=== PATIENT | female | born 2005 | race Caucasian/White ===

== ENCOUNTER 2024-05-31 12:05 | Day surgery (SDC) | payer OTHER, SELFPAY ==
[2024-05-31] VITALS (10 sets, daily range): BP systolic 100–143; BP diastolic 66–84; PULSE 72–131; RESP 14–20; TEMP 36.1–36.9; O2SAT 96–100; BMI 24.3
[2024-05-31 12:33] LABS: Mucous, Urine 0 SEEN /hpf (<or=2+); Red Blood Cells-Urine 0 SEEN /hpf (0-5)
[2024-05-31 12:34] LABS: Absolute Lymphocyte Count 2.23 X10^3/uL (0.83-4.51); Absolute Neutrophil Count 7.1 X10^3/uL (2.0-7.7); Basophil# 0.04 X10^3/uL; Basophil% 0.4 % (0-1); Eosinophil# 0.06 X10^3/uL; Eosinophils% 0.6 % (0-5); Hematocrit 36.7 % (37-47); Hemoglobin 11.5 g/dL (12.0-15.0); Lymphocyte # 2.23 X10^3/ul (0.83-4.51); Lymphocyte % 22.3 % (19-41); Mean Corp Hgb Conc 31.3 g/dL (32-36); Mean Corpuscular Hgb 28.3 pg (27.0-32.0); Mean Corpuscular Volume 90.2 fL (81-99); Monocyte# 0.54 X10^3/uL; Monocyte% 5.4 % (0-10); NRBC Flagged by Analyzer 0 % (0-5); Neutrophil # 7.08 X10^3/uL (2.7-7.7); Platelet Count 376 K/mm3 (150-450); RBC Distribution Width SD 42.8 fl (35.1-43.9); Red Blood Count 4.07 M/mm3 (4.2-5.4)
--- NOTE | 2024-05-31 12:35 | CT_ITS ---
STUDY: CT ABDOMEN AND PELVIS WITH CONTRAST REASON FOR EXAM: Female, 18 years old. Right lower quadrant pain proximity of McBurney''s, -- Decreased appetite RADIATION DOSAGE (If Supplied By Facility): CTDIvol = ( 10.15 ) mGy, DLP = ( 522.53 ) mGycm TECHNIQUE: Transaxial images were obtained from the dome of the diaphragm to the symphysis pubis without oral contrast. IV 100mL Isovue-370 was administered. Sagittal and coronal images were reconstructed. Individualized dose optimization techniques were used for this CT. COMPARISON: None. FINDINGS: Minimal increased linear markings at the left lung base suggestive of linear atelectasis. The visualized portions of the heart are within normal limits. Normal liver. Normal gallbladder and extrahepatic biliary system. Normal spleen. Normal pancreas. Normal bilateral adrenal glands. Normal right kidney. Normal left kidney. Normal visualized stomach. Normal small intestine. Normal colon. There is a tubular, thick-walled appendix (>7mm), consistent with acute appendicitis. Small lymph nodes are seen in the mesenteric fat in the right lower quadrant is suggestive of a mesenteric adenitis. Normal abdominal aorta. Normal inferior vena cava. Normal retroperitoneum. Normal urinary bladder. Small amount of free fluid is seen in the cul-de-sac. Worse on the right side. Follicles are seen in both ovaries. Normal abdominal wall. Normal osseous structures. CT/Abdomen/Pelvis W IV Cont ONLY IMPRESSION: Findings suggestive of appendicitis with fluid in the pelvis more prominent on the right side. Mesenteric adenitis. Follicles in both ovaries. Electronically Signed: Obnina Madsen MD at 13:07 EST ,
[2024-05-31 12:36] LABS: Color, Urine Yellow (Yellow); Glucose, Dipstick Normal (Normal); Ketone-Dipstick Negative (Negative); Leukocyte Esterase-Dipstick 100 /ul (Negative); Nitrite-Dipstick Negative (Negative); Occult Blood-Urine Negative /ul (Negative); Protein-Dipstick Negative (Negative); Specific Gravity, Urine 1.025 (1.002-1.030); Urine Bilirubin Dipstick Negative (Negative); Urine Clarity Sl. Cloudy (Clear); Urine Urobilinogen Normal (Normal)
--- NOTE | 2024-05-31 12:38 | EDS_ITS ---
HPI <CARMINE Clark - Last Filed: 05/31/24 13:37> History of Present Illness Chief Complaint: Abd Pain Narrative Narrative: Patient is a 18-year-old female with no significant medical history presents to the emergency department with 2 days of right lower quadrant abdominal pain. Patient states that started gradually. Patient states it is now more of a discomfort, she feels like there is a need to go to the bathroom. She denies any difficulty urinating, denies any blood in her stool. Patient dates she did have 2 episodes of diarrhea today which is not like her. She did go to the urgent care however was referred here secondary to pain of the right lower quadrant. Patient's menstrual cycle is usually towards the end of the month beginning of next month. PFSH <CARMINE Clark - Last Filed: 05/31/24 13:37> PFSH Medical History no medical history Home Medications ?Medication ?Instructions ?Recorded ?Last Taken ?Type NK 05/31/24 Unknown History Allergy/AdvReac Type Severity Reaction Status Date / Time No Known Allergies Allergy Verified 05/31/24 12:05 Surgical History no surgical history Social History Smoking Status: Never smoker ROS <CARMINE Clark - Last Filed: 05/31/24 13:37> ROS ED ROS Narrative Constitutional: Negative for fever, chills, weight loss, weakness Eyes: Negative for vision loss, vision change, double vision ENT: Negative for any sore throat, ear pain, congestion Cardiovascular: Negative for any chest pain, tightness, palpitations Respiratory: Negative for any cough, sputum production, hemoptysis, dyspnea, dyspnea on exertion, orthopnea Gastrointestinal: Negative for any nausea, vomiting, constipation, blood in stool, blood in vomit. Positive for abdominal pain, diarrhea : Negative for any urinary frequency, dysuria, retention, blood in urine Muscle skeletal: Negative for any neck pain, back pain Neurological: Negative for any headache, syncope, dizziness Skin: Negative for any rashes, itching, abrasions, lacerations Psychiatric: Negative for any depression, anxiety, stress, suicidal ideation, homicidal ideation Hematologic: Negative for any excessive bruising, easy bleeding EXAM <CARMINE Clark - Last Filed: 05/31/24 13:37> Physical Exam Narrative Exam Narrative: Vital signs reviewed. HEET: Head normocephalic atraumatic, TMs clear bilaterally. Posterior pharynx is clear, moist mucous membranes. Nares clear bilaterally. Neck: Supple with no lymphadenopathy or tenderness. No signs of meningismus. Cardiac: Regular rate and rhythm no murmurs gallops or rubs, equal peripheral pulses bilaterally. Respiratory: Lungs clear to auscultation bilaterally. No chest tenderness. Abdomen: Soft nondistended. No abdominal bruit or pulsatile masses. No hepatosplenomegaly. No peritoneal signs, pain on palpation to the right lower quadrant, right suprapubic area. Active bowel sounds in all quadrants. Extremities: No peripheral edema, no signs of gross trauma or deformity. Active full range of motion of all extremities. Neuro: Cranial nerves II through XII intact, no focal neurological deficits. Skin: Clean dry and intact with no rash, purpura, petechiae, vesicles or pustules. Backs/flank: No CVA tenderness, no midline spinal tenderness, no deformity. Psych: Normal mood and affect. No SI, HI or acute psychosis. Const Vital Signs: 05/31/24 12:06 05/31/24 13:40 05/31/24 14:14 Temperature 97 F L 98.0 F 98.0 F Temperature Source Temporal Oral Pulse Rate 131 H 110 H 110 H Respiratory Rate 15 16 16 Blood Pressure 143/84 H 124/74 H 124/74 H Blood Pressure Mean 103 90 Blood Pressure Source Monitor Blood Pressure Position Semi-Fowlers Blood Pressure Location Right Arm Pulse Ox 100 100 Oxygen Delivery Method Room Air Room Air Positive well nourished and well developed General Appearance ED: well developed <Dr. Hammad Phillip MD - Last Filed: 05/31/24 14:25> Physical Exam Const Vital Signs: 05/31/24 12:06 05/31/24 13:40 05/31/24 14:14 Temperature 97 F L 98.0 F 98.0 F Temperature Source Temporal Oral Pulse Rate 131 H 110 H 110 H Respiratory Rate 15 16 16 Blood Pressure 143/84 H 124/74 H 124/74 H Blood Pressure Mean 103 90 Blood Pressure Source Monitor Blood Pressure Position Semi-Fowlers Blood Pressure Location Right Arm Pulse Ox 100 100 Oxygen Delivery Method Room Air Room Air MDM <CARMINE Clark - Last Filed: 05/31/24 13:37> MDM Lab Data Labs: Laboratory Results - last 24 hr 05/31/24 05/31/24 12:19 12:25 WBC 10.0 RBC 4.07 L Hgb 11.5 L Hct 36.7 L MCV 90.2 MCH 28.3 MCHC 31.3 L RDW Std Deviation 42.8 RDW Coeff of Maricel 13.0 Plt Count 376 MPV 10.0 Immature Gran % (Auto) 0.300 Neut % (Auto) 71.0 H Lymph % (Auto) 22.3 [place] % (Auto) 5.4 Eos % (Auto) 0.6 Baso % (Auto) 0.4 Absolute Neuts (auto) 7.1 Absolute Lymphs (auto) 2.23 Nucleated RBC % 0 Sodium 139 Potassium 3.6 Chloride 108 H Carbon Dioxide 26.0 Anion Gap 5 BUN 8 Creatinine 0.67 Estim Creat Clear Calc 121.53 Est GFR (MDRD) Af Amer 144 Est GFR (MDRD) Non-Af 119 BUN/Creatinine Ratio 11.9 Glucose 102 Calcium 9.7 Total Bilirubin 0.60 AST 17 ALT 21 Alkaline Phosphatase 55 Total Protein 7.9 Albumin 4.1 Globulin 3.8 Albumin/Globulin Ratio 1.1 Lipase 23 Urine Color Yellow Urine Clarity Sl. Cloudy Urine pH 6.0 Ur Specific [place] 1.025 Urine Protein Negative Urine Glucose (UA) Normal Urine Ketones Negative Urine Occult Blood Negative Urine Nitrite Negative Urine Bilirubin Negative Urine Urobilinogen Normal Ur Leukocyte Esterase 100 H Urine RBC 0 SEEN Urine WBC 0-5 SEEN Ur Squamous Epith Cells 5-10 SEEN Urine Bacteria 1+ Urine Mucus 0 SEEN Urine Test Negative Radiography Diagnostic Testing: Clinical Impression(s) from Imaging Studies Abdomen/Pelvis CT 05/31/24 12:35 IMPRESSION: Findings suggestive of appendicitis with fluid in the pelvis more prominent on the right side. Mesenteric adenitis. Follicles in both ovaries. Electronically Signed: Obinna Madsen MD at 13:07 EST , Treatment and Re-Evaluation :: Differential diagnosis includes however is not limited to: Ovarian cyst, gas, obstruction, constipation, acute appendicitis, ectopic Patient is tachycardic over the remainder the vital signs are stable. Presenting to the emergency department with 2 days of right lower quadrant abdominal pain, suprapubic pain. On the patient's physical examination, she did have pain on the right lower quadrant, patient received some basic laboratory values, urinalysis, urine . Patient will receive a CT scan of the IV contrast. All radiologic examinations were read, reviewed by the emergency department attending. From these reads, a plan of care will be put in place. Patient CBC showed no leukocytosis, hemoglobin 11.5, chemistries were unremarkable. Patient's urinalysis showed 1+ bacteria, 5-10 squamous cells, 100 leukocytes, patient's was negative. Okay patient CT scan of the abdomen pelvis shows finding suggestive of appendicitis with fluid in the pelvis more prominent on the right side. Mesenteric adenitis. Follicles in both ovaries. Secondary this finding, I will reach out to surgery, patient was made aware, started IV Zosyn. I spoke with Dr. Fonseca, we went over the scan together, patient started IV Zosyn. Patient be added onto the surgical schedule today. <Dr. Hammad Phillip MD - Last Filed: 05/31/24 14:25> [facility] Narrative Medical decision making narrative: I have personally performed a face to face assessment of the patient and have reviewed the CALI Note. I performed a substantive portion of the visit including all aspects of the following. My casillas findings include: History is remarkable for bilateral abdominal pain greater on the right. Patient has had decreased appetite since yesterday. She states limping causes increased pain. She denies fever or chills. Sister was recently diagnosed with pinworms. She had no symptoms to suggest pinworms however the entire family was treated. She does report urgency without hematuria or dysuria. She has no history of ovarian cyst. She states her menses was end of last month beginning of this month. She is on no form of control. There is no history of renal ureterolithiasis in the family or patient. She was seen at urgent care and sent to the ER because of concern for appendicitis. Exam is remarkable for tympany to percussion. Bowel sounds are diminished. There is tenderness over the suprapubic and in the proximity of McBurney's point. There is no referred pain and no percussion tenderness. There is guarding to deep palpation on the right over McBurney's point. There is no CVA tenderness. Medical Decision Making differential diagnosis is appendicitis versus mesenteric adenitis versus abdominal pain of unknown etiology. Also need to consider urinary tract infection. Will obtain CBC test. CT of the abdomen and pelvis with IV contrast was ordered. Other additions or changes: Case was discussed with surgeon on-call Dr. Alf Fonseca. He excepted patient. Plan is OR. Lab Data Attestation: I reviewed the patient's lab results. Lab results narrative: CBC is remarkable for mild anemia with normal indices. Comprehensive metabolic panel is normal. Urinalysis reveals 1+ bacteria however there is no pyuria and nitrites were negative. Urine is not diagnostic for an infection. Security is elevated and may be reason why there is 1+ bacteria. This also may represent infection but not classic. Labs: Laboratory Results - last 24 hr 05/31/24 05/31/24 12:19 12:25 WBC 10.0 RBC 4.07 L Hgb 11.5 L Hct 36.7 L MCV 90.2 MCH 28.3 MCHC 31.3 L RDW Std Deviation 42.8 RDW Coeff of Maricel 13.0 Plt Count 376 MPV 10.0 Immature Gran % (Auto) 0.300 Neut % (Auto) 71.0 H Lymph % (Auto) 22.3 [place] % (Auto) 5.4 Eos % (Auto) 0.6 Baso % (Auto) 0.4 Absolute Neuts (auto) 7.1 Absolute Lymphs (auto) 2.23 Nucleated RBC % 0 Sodium 139 Potassium 3.6 Chloride 108 H Carbon Dioxide 26.0 Anion Gap 5 BUN 8 Creatinine 0.67 Estim Creat Clear Calc 121.53 Est GFR (MDRD) Af Amer 144 Est GFR (MDRD) Non-Af 119 BUN/Creatinine Ratio 11.9 Glucose 102 Calcium 9.7 Total Bilirubin 0.60 AST 17 ALT 21 Alkaline Phosphatase 55 Total Protein 7.9 Albumin 4.1 Globulin 3.8 Albumin/Globulin Ratio 1.1 Lipase 23 Urine Color Yellow Urine Clarity Sl. Cloudy Urine pH 6.0 Ur Specific [place] 1.025 Urine Protein Negative Urine Glucose (UA) Normal Urine Ketones Negative Urine Occult Blood Negative Urine Nitrite Negative Urine Bilirubin Negative Urine Urobilinogen Normal Ur Leukocyte Esterase 100 H Urine RBC 0 SEEN Urine WBC 0-5 SEEN Ur Squamous Epith Cells 5-10 SEEN Urine Bacteria 1+ Urine Mucus 0 SEEN Urine Test Negative Radiography Diagnostic Testing: Clinical Impression(s) from Imaging Studies Abdomen/Pelvis CT 05/31/24 12:35 IMPRESSION: Findings suggestive of appendicitis with fluid in the pelvis more prominent on the right side. Mesenteric adenitis. Follicles in both ovaries. Electronically Signed: Obinna Madsen MD at 13:07 EST , There appears to be abnormality/fluid collection on the right. Question of enlarged ovary. The appendix lights up which is suggestive of early appendicitis. Will await formal read by radiologist Management Discussion w/another healthcare provider: [facility] (Surgeon was [facility], Dr. Fonseca) Discharge Plan Dx/Rx/DC Orders Clinical Impression: Acute appendicitis, Sinus tachycardia seen on sales and marketing vice president, Elevated blood- pressure reading without diagnosis of hypertension Disposition Disposition: Acute Care Hospital [facility] Discharge Date/Time: 05/31/24 13:53
[2024-05-31 12:42] LABS: Bacteria 1+ /hpf (None Seen); Squamous Epithelial Cells - UA 5-10 SEEN /hpf (5-10); White Blood Cells 0-5 SEEN /hpf (0-5)
[2024-05-31 12:43] LABS: Internal QC Validated? YES +Cl - CLEAR BKGD; Pregnancy, Urine Negative Negative
[2024-05-31 12:43] LABS: ALB/GLOB Ratio 1.1 RATIO (0.9-2.4); AST(SGOT) 17 U/L (15-37); Alanine Aminotransfer ALT/SGPT 21 U/L (13-56); Albumin, Serum 4.1 g/dL (3.2-5.0); Alkaline Phosphatase 55 U/L (45-117); Anion Gap 5 (5-15); BUN 8 mg/dL (7-18); BUN/Creat Ratio 11.9 RATIO (10-20); Calcium,Total 9.7 mg/dL (8.5-10.1); Chloride 108 mmol/L (98-107); Creatinine, Serum 0.67 mg/dL (0.55-1.02); EST Glomerular Filtration Rate 119 mL/min (>60); Est Glom Filt Rate - Afr Amer 144 mL/min (>60); Estimated Creatinine Clearance 121.53 ml/min; Globulin 3.8 g/dL (2.2-4.2); Glucose 102 mg/dL (74-106); Lipase 23 U/L (13-75); Potassium 3.6 mmol/L (3.5-5.1); Protein, Total 7.9 g/dL (6.4-8.2); Sodium Level 139 mmol/L (136-145)
[2024-05-31] MEDS: 0.9% Normal Saline (1000mL) 1,000 ML 999 ML IV (12:47)
[2024-05-31] MEDS: Piperacil/Tazobactam 4.5 GM in 0.9% Normal Saline (100mL MB+) 100 ML IV (13:36)
--- NOTE | 2024-05-31 13:37 | ED.RN ---
yusuf verfied with 2 nurses, not scanning
--- NOTE | 2024-05-31 14:13 | PCM.PRE.AN2 ---
ASA Classification* ASA Classification ASA Classification: 2 and E Assessment & Plan Anesthesia* Anesthesia Assessment Anesthesia Assessment: Discussed sedation and/or anesthesia options, risks, benefits, and alternatives with patient/parents/legal guardian/POA. Questions invited. The patient/parents/legal guardian/POA seems to understand and agrees to proceed with anesthesia plan. Reviewed the physical assessment, medical history, allergy history and patient home medications list prior to surgery/procedure/anesthetic and documented any changes. Performed airway and anesthesia risk assessments. Anesthesia Type Anesthesia Type: General Anesthesia Focused Assessment* Temperature: 98.0 F Pulse Rate: 110 Blood Pressure: 124/74 Respiratory Rate: 16 Pulse Ox: 100 Airway Assessment Mouth opens: >3 cm Mallampati Score: II Focused Labs Anesthesia Preop lab: CBC WBC 10.0 K/mm3 (4.4-11.0) 05/31/24 12:19 RBC 4.07 M/mm3 (4.2-5.4) L 05/31/24 12:19 Hgb 11.5 g/dL (12.0-15.0) L 05/31/24 12:19 Hct 36.7 % (37-47) L 05/31/24 12:19 Plt Count 376 K/mm3 (150-450) 05/31/24 12:19 CHEMISTRY Potassium 3.6 mmol/L (3.5-5.1) 05/31/24 12:19 Sodium 139 mmol/L (136-145) 05/31/24 12:19 BUN 8 mg/dL (7-18) 05/31/24 12:19 Creatinine 0.67 mg/dL (0.55-1.02) 05/31/24 12:19 Glucose 102 mg/dL (74-106) 05/31/24 12:19 COAG Urine Test Negative Negative 05/31/24 12:25 Pre-Assessment Diagnosis/Proposed Procedure Planned Operative Procedure(s): laproscopic appendectomy Anesthesia History Anesthesia History - principal technical writer: Anesthesia History - principal technical writer Hx Hospitalization Any Problems With Anesthesia No 05/31/24 13:40 Cholinesterase deficiency No 05/31/24 13:40 You/Your Family Experience No 05/31/24 13:40 fever (hyperthermia) with Relationship Recent Exposure to Contagious Disease Does patient have nerve No 05/31/24 13:40 stimulator Patient instructed to have No 05/31/24 13:40 device shut off --Does patient have Pacemaker No 05/31/24 13:40 or ICD? When Was Last Pacemaker Check QUESTION #4 FULL TEXT: You/Your Family Experience fever (hyperthermia) with Anesthesia Last Oral Intake Last Oral intake: Last Oral Intake NPO since 19:00 05/31/24 13:40 Meds taken in AM with sips of water? Meds patient instructed to sine 1900 05/3005/31/24 13:40 take am of surgery PONV PONV - principal technical writer: PONV - principal technical writer Female HX of Motion Sickness HX of N/V After Surgery Non-Smoker Duration of Surgery greater than 60 minutes Number of Risk Factors PONV Score Height & Weight Height & Weight: Anesthesia: Height & Weight Height 5 ft 5 in 05/31/24 13:40 Weight: 66.224 kg 05/31/24 13:40 Body Mass Index (BMI) 24.3 05/31/24 13:40 Respiratory Assessment Respiratory Assessment - principal technical writer: Respiratory Tract Infection Hx - principal technical writer Hx Respiratory Tract Infection No 05/31/24 13:40 STOP Sleep Apnea STOP Sleep Apnea - principal technical writer: STOP Sleep Apnea - principal technical writer Hx Hypertension No 05/31/24 13:40 Hx Sleep Apnea No 05/31/24 13:40 CPAP BIPAP Do you snore loudly (louder No 05/31/24 13:40 than talking or can be heard Do you often feel tired/ No 05/31/24 13:40 fatigued/ sleepy during daytime? Has anyone observed you stop No 05/31/24 13:40 breathing during sleep? STOP Results Negative 05/31/24 13:40 QUESTION #5 FULL TEXT : Do you snore loudly (louder than talking or can be heard through closed doors)? Tobacco Use History Tobacco Use History - principal technical writer: Tobacco Use History - principal technical writer Tobacco Use Smoking Status Never smoker 05/31/24 12:12 Hx Tobacco Use No 08/04/14 20:53 Years Smoking Packs Smoked per Day Smoking Cessation Date was within the last 15 years Hx Smoking Cessation Date Hx Smoking Cessation Counseling Hematologic Medial History Hematologic Hx - principal technical writer: Hematologic Medical Hx - bending machine operator Hx of Blood Transfusion Hx of Transfusion in last 3 Months Date of Last Transfusion (if within last 3 months) Ever experience any problems with transfusion(s)? Specify any problems Hx of Preganancy in last 3 Months Nurse Filling Out Transfusion & Questions: Date: Time: Patient unable to answer at this time (ie. confused, unrespo /Reproduction History /Reproductive History - principal technical writer: /Reproductive Hx- principal technical writer Hx Now No 05/31/24 13:40 Gestational Age (in weeks): EDC: Hx Hx Para Hx Section SAB No 05/31/24 13:40 PFSH Medical History no medical history Home Medications ?Medication ?Instructions ?Recorded ?Last Taken ?Type NK 05/31/24 Unknown History Allergy/AdvReac Type Severity Reaction Status Date / Time No Known Allergies Allergy Verified 05/31/24 12:05 Surgical History no surgical history Social History Smoking Status: Never smoker Review of Systems (Anesthesia) ROS Narrative System reviewed and no additional complaints, except as documented.
--- NOTE | 2024-05-31 14:34 | PCM.HP.STD ---
HPI - General HPI Narrative BRE BERNABE, is a 18 F who presents With right lower quadrant pain of 2 days. She denies nausea or vomiting or fevers or chills. She says the pain does not radiate. She is 2 weeks after her last period. She says this is the most severe pain she has had in her abdomen and she is never had a period like this and she thinks something else is going on. PFSH Medical History no medical history Home Medications ?Medication ?Instructions ?Recorded ?Last Taken ?Type NK 05/31/24 Unknown History Allergy/AdvReac Type Severity Reaction Status Date / Time No Known Allergies Allergy Verified 05/31/24 12:05 Surgical History no surgical history Social History Smoking Status: Never smoker ROS Constitutional Constitutional: Denies anorexia, chills, fatigue or fever(s) Eyes Eyes: Denies blurry vision ENT HEENT: Denies abnormal hearing Cardiovascular Cardiovascular: Denies chest pain Respiratory/Chest Respiratory/Chest: Denies cough or dyspnea Gastrointestinal Gastrointestinal: Reports abdominal pain; Denies nausea or vomiting Musculoskeletal Musculoskeletal: Denies abnormal gait or back pain Integumentary Integumentary: Denies jaundice Neurologic Neurologic: Denies abnormal gait Psychiatric Psychiatric: Denies anxiety Endocrine Endocrinology: Denies flushing Hematologic/Lymphatic Hematologic/Lymphatic: Denies easy bleeding Vital Signs Vital Signs Vital Signs: 05/31/24 12:06 05/31/24 13:40 05/31/24 14:14 Temperature 97 F L 98.0 F 98.0 F Temperature Source Temporal Oral Pulse Rate 131 H 110 H 110 H Respiratory Rate 15 16 16 Blood Pressure 143/84 H 124/74 H 124/74 H Blood Pressure Mean 103 90 Blood Pressure Source Monitor Blood Pressure Position Semi-Fowlers Blood Pressure Location Right Arm Pulse Ox 100 100 Oxygen Delivery Method Room Air Room Air Weight Weight: 146 lb Body Mass Index (BMI) 24.3 Physical Exam Const oriented x3 and no apparent distress Resp normal respiratory effort Cardio regular rate and regular rhythm GI soft to palpation Palpation: tender RLQ Extremity normal to inspection Results Lab / Micro Data 05/31/24 12:19 05/31/24 12:19 Labs: Laboratory Results - last 24 hr 05/31/24 12:19: WBC 10.0, RBC 4.07 L, Hgb 11.5 L, Hct 36.7 L, MCV 90.2, MCH 28.3, MCHC 31.3 L, RDW Std Deviation 42.8, RDW Coeff of Maricel 13.0, Plt Count 376, MPV 10.0, Immature Gran % (Auto) 0.300, Neut % (Auto) 71.0 H, Lymph % (Auto) 22.3, [place] % (Auto) 5.4, Eos % (Auto) 0.6, Baso % (Auto) 0.4, Absolute Neuts (auto) 7.1, Absolute Lymphs (auto) 2.23, Nucleated RBC % 0, Sodium 139, Potassium 3.6, Chloride 108 H, Carbon Dioxide 26.0, Anion Gap 5, BUN 8, Creatinine 0.67, Estim Creat Clear Calc 121.53, Est GFR (MDRD) Af Amer 144, Est GFR (MDRD) Non-Af 119, BUN/Creatinine Ratio 11.9, Glucose 102, Calcium 9.7, Total Bilirubin 0.60, AST 17, ALT 21, Alkaline Phosphatase 55, Total Protein 7.9, Albumin 4.1, Globulin 3.8, Albumin/Globulin Ratio 1.1, Lipase 23 05/31/24 12:25: Urine Color Yellow, Urine Clarity Sl. Cloudy, Urine pH 6.0, Ur Specific [place] 1.025, Urine Protein Negative, Urine Glucose (UA) Normal, Urine Ketones Negative, Urine Occult Blood Negative, Urine Nitrite Negative, Urine Bilirubin Negative, Urine Urobilinogen Normal, Ur Leukocyte Esterase 100 H, Urine RBC 0 SEEN, Urine WBC 0-5 SEEN, Ur Squamous Epith Cells 5-10 SEEN, Urine Bacteria 1+, Urine Mucus 0 SEEN, Urine Test Negative Imaging Radiology Impression Abdomen/Pelvis CT 05/31/24 12:35 IMPRESSION: Findings suggestive of appendicitis with fluid in the pelvis more prominent on the right side. Mesenteric adenitis. Follicles in both ovaries. Electronically Signed: Obinna Madsen MD at 13:07 EST , Assessment & Plan Assessment/Plan (1) Acute appendicitis: QUALIFIERS: Acute appendicitis type: unspecified acute appendicitis type Qualified Code(s): K35.80 - Unspecified acute appendicitis PLAN: Patient has right lower quadrant pain of 2 days. Her white count is slightly elevated with left shift and CT scan did show fluid-filled appendix concerning for early appendicitis. I discussed laparoscopic appendectomy with the patient in detail. I discussed the risks including but not limited to bleeding, infection, injury other organs such as the bowel, bladder, ureter. Patient understands all the risks and would like to proceed with laparoscopic appendectomy. I also explained that this may not be appendicitis but I would take out the appendix regardless during the surgery. Alf Fonseca MD Pager: [facility] [address] [place] [address], [address] [place] [address] Office:
--- NOTE | 2024-05-31 15:00 | APP_PTH ---
PATIENT: BRE BERNABE LOC: [facility] [place] U#:[id number] AGE/SX: 18/F ROOM: RE05/31/[address]: Dr. Alf Fonseca MD : 2005 BED: DIS: 05/31/2024 SPEC #: [id number] RECD: 05/31/24 18:22 STATUS: YULISA RELili #: [id number] BIJU: 05/31/24 15:[address]: Alf Fonseca DEPT: SURGICAL PATHOLOGY RECD BY: Cristin Kowalski ENTERED: 06/03/24 09:01 SP TYPE: APPENDIX OTHR DR: Dr. Vikki Deutsch MD Tissues: Appendix, NOS Procedures: Surgery Specimen Level III HEADER OPERATION: Laparoscopic appendectomy PRE-OP DIAGNOSIS: Acute appendicitis TISSUE SUBMITTED: Appendix MICROSCOPIC DIAGNOSIS Appendix, appendectomy: Acute appendicitis. Focal obliteration of lumen. Acute serositis. AM. 06/04/2024 COMMENT Case has been reviewed in consultation with Dr. Beard who concurs with the above diagnosis. IDC:[email or web address] MICROSCOPIC DESCRIPTION Slides are reviewed. GROSS DESCRIPTION Received in fixative is one container labeled with the patient's name and designated appendix. The specimen consists of an appendix measuring 5.0 cm in length and up to 1.2 cm in diameter. The attached periappendiceal adipose tissue measures up to 1.5 cm in width. The serosa is congested. No obvious perforation is identified. The lumen is filled with fecal material. No fecalith is identified. Auto Radiator Mechanic sections are submitted in three cassettes. / CHERELLE: 06/03/2024 TC:2 CPT: 25910
[2024-05-31] MEDS: Bupiv/Epi 0.25% 30 ML Vial (15:35)
--- NOTE | 2024-05-31 15:50 | PCM.POST.ANE ---
Anesthesia: Postop Eval I Current Vital Signs Temperature: 98.5 F Pulse Rate: 108 Blood Pressure: 116/71 Respiratory Rate: 18 Pulse Ox: 98 Assessment Airway patent: Yes Spontaneous unlabored respirations: Yes nausea: No Vomiting: No Anesthesia Complication: No Fluid Hydration Crystalloid volume administer (ml): 1,000 Total IV fluid infused: 1,000 Progress Note Anesthesia document: Postop Eval 1 completed: Yes
--- NOTE | 2024-05-31 15:54 | OP.PCM_ITS ---
Operative Report (Standard) Operative Information Date of Procedure: 05/31/24 Pre-Operative Diagnosis: Acute appendicitis Post-Operative Diagnosis: Acute appendicitis Surgery/Procedure Performed: Laparoscopic appendectomy asian art curator: No Type of Anesthesia: General/Regional RN Documented Start/Stop Times: Operation Date: 05/31/24 15:00 Case Time Into Pre-Op 05/31/24 13:54 Out of Pre-Op 05/31/24 14:44 Anesthesia Start 05/31/24 14:53 Into Room 05/31/24 14:53 Procedure Start 05/31/24 15:09 Procedure End 05/31/24 15:32 Anesthesia End 05/31/24 15:45 Out of Room 05/31/24 15:45 Into Recovery 05/31/24 15:52 Procedure Start Time: 15:09 Procedure Stop Time: 15:32 Select all DRAINS/GRAFTS/IMPLANTS that apply: None Estimated Blood Loss: 5 Specimen collected: Yes Description of specimen(s) removed: Appendix Description of surgery: The patient was brought into the operating room and general anesthesia was induced. The left arm was tucked and the abdomen was prepped and draped in usual sterile fashion. A small midline incision was made superior to the umbilicus and deepened to the level of the fascia. The fascia was elevated and incised. The peritoneum was also elevated and incised. A finger sweep was performed and a balloon trocar was placed into the abdomen and inflated. The abdomen was insufflated to 15 mmHg and the camera was inserted and the abdomen was inspected for any injuries upon entering the abdomen. There were none. The patient was placed in Trendelenburg position and a 5 mm ports placed in the left lower quadrant and suprapubic areas under direct visualization. Next using atraumatic bowel graspers the appendix was identified. The appendix was grasped and elevated and Enseal was used to take down the mesoappendix. A stapler was used to come across the base of the appendix. The appendix was then placed in Endo Catch bag and removed through the umbilical incision. The staple line was inspected and found to be hemostatic and intact. The 2 5 mm ports are removed under direct visualization. The balloon trocar was deflated and removed and all the air was removed from the abdomen. The umbilical incision fascia was closed with an 0 Vicryl [id number] suture. The incisions were then irrigated with saline and dried. Local anesthetic was injected into the incision sites. The skin incisions were then closed with interrupted 4-0 Monocryl suture and Steri- Strips. Bandages were applied and the patient was awoken and taken to PACU in stable condition. Patient tolerated the procedure well. Surgical Findings: Mildly enlarged appendix. Serosanguineous fluid in the pelvis with cysts in the right ovary Complications Complications: No Admit VTE Documentation VTE Mechan Device Prophylaxis: SCD's
--- NOTE | 2024-05-31 15:55 | DCINST_ITS ---
Discharge Instructions Procedure Appendectomy Diet Discharge Diet: Light diet - advance as tolerated Activity Discharge Activity: May Not Drive (for 2-3 days or while taking narcotic pain medications.) May shower in (days): 1 Lifting Restrictions: 20 lbs for 2 weeks Dressing / Incision Call your doctor if your incision/area has: Continuous Slow Oozing, Sudden Increased Bleeding, Increased Pain/ Swelling, Increased Redness and Foul Smelling Discharge Call your doctor if you observe: Fever of 101 or Higher Suture Line Care: Avoid Pulling/Pushing and Avoid Pinching/Bending Remove Dressing in: 2 days Cleanse incision/area with: Soap & Water Additional Dressing/Incision Instructions:: Keep dressing clean and dry. Change or remove dressing in 2 days. Leave steri strips for 1 week. May protect with a gauze bandaid. Follow Up Care Please Follow Up With: Alf Fonseca MD When: Please call to schedule 2 week follow up appointment. [phone] Test Results: Test results from this visit will be discussed in further detail at your follow- up appointment, if applicable. Discharge Plan Admission Attending Provider: Alf Fonseca Primary Care Provider: Vikki Deutsch Instructions Print Language: Niuean Discharge Orders/Prescriptions Prescriptions: New oxycodone 5 mg Tablet 5 - 10 mg PO Q4H PRN PRN (Reason: Pain Score 4-10) 5 Days Qty: 14 0RF Referrals / Follow Up: Vikki Deutsch MD [Primary Care Provider] - Disposition Disposition (needs filled in before D/C Order can be placed): Home, Self Care
--- NOTE | 2024-05-31 16:35 | POSTOPAN2_ITS ---
Anesthesia Postop Eval I Sum Postop Eval Completion status Anesthesia document: Postop Eval 1 completed: Yes Anesthesia Postop Eval I Summary Anesthesia Postop Eval I Summary: Anesthesia Postop Eval I: Assessment Summary Airway patent Yes 05/31/24 15:50 BALLPOINT PENS [email or web address] Spontaneous unlabored Yes 05/31/24 15:50 BALLPOINT PENS [email or web address] respirations Mental status nausea No 05/31/24 15:50 BALLPOINT PENS [email or web address] Vomiting No 05/31/24 15:50 BALLPOINT PENS [email or web address] Anesthesia Postop Eval I: Fluid Summary Crystalloid volume administer 1,000 05/31/24 15:50 BALLPOINT PENS [email or web address] (ml) Colloids volume administered ( ml) Blood Product volume administered (ml) Total IV fluid infused 1,000 05/31/24 15:50 BALLPOINT PENS [email or web address] Anesthesia Postop Eval I: Summary Notes Anesthesia Complication No 05/31/24 15:50 BALLPOINT PENS [email or web address] Anesthesia Complication Comment: Post-operative progress note Anesthesia: Postop Eval II Evaluation Mental status: Awake and Calm Pain Level: 2 nausea: No Vomiting: No Complications Anesthesia Complication: No
--- NOTE | 2024-05-31 16:35 | PCM.POSTANE2 ---
Anesthesia Postop Eval I Sum Postop Eval Completion status Anesthesia document: Postop Eval 1 completed: Yes Anesthesia Postop Eval I Summary Anesthesia Postop Eval I Summary: Anesthesia Postop Eval I: Assessment Summary Airway patent Yes 05/31/24 15:50 HEEL [email or web address] Spontaneous unlabored Yes 05/31/24 15:50 HEEL [email or web address] respirations Mental status nausea No 05/31/24 15:50 HEEL [email or web address] Vomiting No 05/31/24 15:50 HEEL [email or web address] Anesthesia Postop Eval I: Fluid Summary Crystalloid volume administer 1,000 05/31/24 15:50 HEEL [email or web address] (ml) Colloids volume administered ( ml) Blood Product volume administered (ml) Total IV fluid infused 1,000 05/31/24 15:50 HEEL [email or web address] Anesthesia Postop Eval I: Summary Notes Anesthesia Complication No 05/31/24 15:50 HEEL [email or web address] Anesthesia Complication Comment: Post-operative progress note Anesthesia: Postop Eval II Evaluation Mental status: Awake and Calm Pain Level: 2 nausea: No Vomiting: No Complications Anesthesia Complication: No
[2024-05-31] MEDS: Acetaminophen 325 MG Tablet 650 MG PO (16:48)
[2024-05-31] MEDS: oxyCODONE 5 MG Tablet PO (16:48)
== END 2024-05-31 18:25 | disposition home or self-care (01) ==
LOC: ED 13:37 → SDC 13:50 → AC 13:51
PROVIDERS: Nurse Practitioner; Emergency Provider Emergency Medicine; PCP Pediatrics; Visit Provider Surgery
PROC: 0DTJ4ZZ Resection of Appendix, Percutaneous Endoscopic Approach (ICD-10-PCS; CPT 44970; principal; 2024-05-31 14:40)
DX: K35.80 Unspecified acute appendicitis (principal); R03.0 Elevated blood-pressure reading, without diagnosis of hypertension
CPT/HCPCS: 44970; 00840; 74177; 80053; 81001; 81025; 83690; 85025; 88304; 99284; Q9967; A4216; J2405